=== PATIENT | male | born 1950 | race Caucasian/White ===

== ENCOUNTER 2016-03-14 07:29 | Outpatient (CLI) | payer MEDICARE, BC | END 2016-03-14 07:30 | disposition home or self-care (01) | DX: S93.422S Sprain of deltoid ligament of left ankle, sequela (principal); M67.972 Unspecified disorder of synovium and tendon, left ankle and foot; M76.62 Achilles tendinitis, left leg ==

== ENCOUNTER 2017-12-28 19:24 | Outpatient (CLI) | payer MEDICARE, BC | END 2017-12-28 19:25 | disposition critical access hospital (66) | LOC: EMS 19:24 | PROVIDERS: ATTEND Surgery | DX: M25.552 Pain in left hip (principal); Z96.642 Presence of left artificial hip joint | CPT/HCPCS: A0425; A0429 ==

== ENCOUNTER 2017-12-28 19:46 | Emergency (ER) | payer MEDICARE, BC ==
--- NOTE | 2017-12-28 20:36 | XRAY Report ---
Reason: r/o dislocation Procedure Date: 12/28/2017 Accession Number: [id number] / [id number] Procedure: XR - Hip w/Pelvis 2-3V RT CPT Code: FULL RESULT: EXAM: RIGHT HIP AND PELVIS RADIOGRAPHY EXAM DATE: 12/28/2017 08:25 PM. HISTORY: R/o dislocation. Pain COMPARISONS: None. TECHNIQUE: 1 view of the pelvis and 1 view of the hip. FINDINGS: There is a right hip arthroplasty. The femoral neck portion is fractured or from the metallic femoral head. The femoral neck is supero-laterally positioned. Old right superior ramus fracture. Left hip arthroplasty appears intact. Soft Tissues: Normal. No soft tissue swelling. IMPRESSION: Right hip arthroplasty with metallic femoral neck portion fractured or displaced superolaterally from the metallic femoral head RADIA
--- NOTE | 2017-12-28 21:05 | ED Physician Documentation ---
PD HPI LOWER EXT INJURY - Stated complaint Stated Complaint: HIP DISLOCATION - Chief complaint Chief Complaint: Ext Problem - History obtained from History obtained from: Patient, Family - History of Present Illness PD HPI LOW EXT INJURY LOCATION: Right, Hip Type of injury: Twist Where injury occurred: Home Timing - onset: Today Timing - duration: Minutes Timing - details: Abrupt onset, Still present Improved by: Rest, Immobilization Worsened by: Moving, Palpating Associated symptoms: No: Weakness, Numbness, Tingling, Swelling, Discolored Contributing factors: Prior ortho surgery, Prosthetic joint. No: Anticoagulated Similar symptoms before: Diagnosis (loosened prosthesis) Recently seen: Not recently seen - Additional information Additional information: 67-year-old male with a prior right total hip arthroplasty done in 2001 in [facility] foot propped up on the coffee table when he went to stand up he felt a crunching and popping and fell to the ground. He was able to get back to the couch and called medics. Medics noted that when they transported him from the couch to the gurney there was a lot of grinding and popping noises. The patient has been having some problems with these grinding and popping noises happening for about 18 months. He states that when he twists his body a certain way sometimes he will hear this crunching and popping and he has been into see Dr. Helen Carnes about this. She has done his arthroplasty on the left side and he is very happy with that prosthesis. He has talked about revision and this has not been scheduled. Review of Systems Constitutional: denies: Fever, Chills Eyes: denies: Decreased vision Ears: denies: Ear pain Nose: denies: Congestion Throat: denies: Sore throat Cardiac: denies: Chest pain / pressure, Palpitations Respiratory: denies: Dyspnea, Cough GI: denies: Abdominal Pain, Nausea, Vomiting : denies: Dysuria, Frequency Skin: denies: Rash Musculoskeletal: reports: Extremity pain, Joint pain, Pain with weight bearing. denies: Neck pain, Back pain Neurologic: denies: Generalized weakness, Focal weakness, Numbness PD PAST MEDICAL HISTORY - Past Medical History Cardiovascular: Hypertension, Other Respiratory: None Endocrine/Autoimmune: None Psych: None Musculoskeletal: Osteoarthritis - Past Surgical History General: Hiatal hernia repair Ortho: Hip replacement, Spine surgery - Present Medications Home Medications: Ambulatory Orders Medication Instructions Recorded Confirmed Aspirin [Children's Aspirin] 1 tab PO DAILY 12/28/17 12/28/17 Diazepam [Valium] 1 tab PO DAILY PRN 12/28/17 12/28/17 Hydrocodone/Acetaminophen 1 - 2 each PO Q6H PRN #14 tablet 12/28/17 [Hydrocodon-Acetaminophen 5-325] Lisinopril 1 tab PO DAILY 12/28/17 12/28/17 Metoprolol Succinate 100 mg PO BID 12/28/17 12/28/17 hydroCHLOROthiazide 1 tab PO DAILY 12/28/17 12/28/17 [Hydrochlorothiazide] - Allergies Allergies/Adverse Reactions: Allergies Allergy/AdvReac Type Severity Reaction Status Date / Time codeine AdvReac Nausea Verified 12/28/17 19:50 PD ED PE NORMAL - Vitals Vital signs reviewed: Yes (normal ) - General General: Alert and oriented X 3, No acute distress, Well developed/nourished - HEENT HEENT: Atraumatic, PERRL, EOMI - Neck Neck: Supple, no meningeal sign - Respiratory Respiratory: No respiratory distress - Back Back: No CVA TTP, No spinal TTP - Derm Derm: Normal color, Warm and dry, No rash - Extremities Extremities: Other (There is shortening and external rotation present on the right. There is restriction of movement and the lateral muscles are tense. The knee is not involved and moves through ROM without problem. distal n/v is intact. 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, No motor deficit, No sensory deficit, Normal speech Eye Opening: Spontaneous Motor: Obeys Commands Verbal: Oriented GCS Score: 15 - Psych Psych: Normal mood, Normal affect Results - Vitals Vitals: Vital Signs - 24 hr 12/28/17 19:46 Temperature 37.1 C Heart Rate 60 Respiratory 16 Rate Blood Pressure 140/75 H O2 Saturation 97 Oxygen O2 Source Room air - Rads (name of study) right hip Radiology: Prelim report reviewed (Impression: Right hip arthroplasty with metallic femoral neck portion fractured or displaced superolaterally from the metallic femoral head.), EMP read indepedently, See rad report PD MEDICAL DECISION MAKING - ED course Complexity details: reviewed results, re-evaluated patient, considered differential, d/w patient, d/w family, d/w leasing consultant (Inge alberto here: recommends contacting Helen Carnes as this is not a revision that would be done at this hospital. Dr. 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 ) ED course: 67-year-old male with a 16-year-old prosthesis of the right hip appears to have disengaged the femoral component of the prosthesis from the metallic femoral head. This patient will need a revision and he has a surgeon that he is especially invested in having to do this. The patient is motivated and here in the emergency department he is ambulated with the use of a walker and appears to do this well. He appears strong enough and this does not appear to be horribly painful. The patient feels confident that he will be able to get around with this. He has some help at home and is in a one level home with a single step to get inside. 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
[2017-12-28] MEDS ORDERED: HYDROcod/ACET 5/325 Prepack 4 PO STA (21:42)
[2017-12-28] MEDS ORDERED: HYDROcod/ACETAM 5/325 MG TABLET PO STA (21:52)
[2017-12-28 21:55] VITALS: BP 154/101
== END 2017-12-28 22:19 | disposition home or self-care (01) ==
LOC: EDUNIT# → ED 19:46
DX: T84.010A Broken internal right hip prosthesis, initial encounter (principal); I10 Essential (primary) hypertension; Z79.82 Long term (current) use of aspirin; Z91.81 History of falling
CPT/HCPCS: 73502; 99283; 99284; A9270

== ENCOUNTER 2018-08-07 11:44 | Outpatient (CLI) | payer MEDICARE, BC ==
--- NOTE | 2018-08-07 14:44 | XRAY Report ---
Reason: HYPERTENSION,PRE OP Procedure Date: 08/07/2018 Accession Number: [id number] / [id number] Procedure: XRN - Chest 2 View X-Ray CPT Code: 08220 FULL RESULT: EXAM: CHEST RADIOGRAPHY EXAM DATE: 08/07/2018 11:54 AM. CLINICAL HISTORY: Hypertension, pre-op. Hip fracture in March. COMPARISON: HIP W/PELVIS 2-3V RT 03/26/2018 12:16 PM. TECHNIQUE: 2 views. FINDINGS: Lungs/Pleura: No focal opacities evident. No pleural effusion. No pneumothorax. Normal volumes. Mediastinum: The aorta is tortuous and there is mild borderline cardiomegaly. Other: None. IMPRESSION: Tortuous aorta and mild borderline cardiomegaly. RADIA
== END 2018-08-07 11:45 | disposition home or self-care (01) ==
LOC: DI.N 11:44
PROVIDERS: ATTEND Specialist
DX: I11.9 Hypertensive heart disease without heart failure (principal); Q25.46 Tortuous aortic arch
CPT/HCPCS: 71046

== ENCOUNTER 2021-10-19 15:47 | Outpatient (CLI) | payer MEDICARE, OTHER | END 2021-10-19 15:48 | disposition short-term general hospital (02) | LOC: EMS 15:47 | DX: R07.89 Other chest pain (principal); R51.9 Headache, unspecified; I95.9 Hypotension, unspecified | CPT/HCPCS: A0425; A0427 ==